=== PATIENT | female | born 1945 | race Caucasian/White ===

== ENCOUNTER → 2019-01-16 12:01 | Outpatient (CLI) | payer MEDICARE, OTHER, SELFPAY ==
--- NOTE | 2019-01-16 | DI.US.S_ITS ---
PROCEDURE: US ABD AORTA ANEURYSM SCREEN INDICATIONS: AAA SCREENING TECHNIQUE: Real time scanning was performed of the aorta and iliac arteries, with image documentation. COMPARISON: None. FINDINGS: Aorta: Proximal aortic diameter measures 2.5 cm. Mid-aorta measures 1.9 cm. Distal aortic diameter is 1.7 cm. Iliac arteries: Right common iliac artery measures 0.7 cm. Left common iliac artery measures 1.7 cm. IMPRESSION: No evidence of abdominal aortic aneurysm. Dictated by: Derrick Brooke M.D. on 01/16/2019 at 14:39 Approved by: Derrick Brooke M.D. on 01/16/2019 at 14:40
== END ==
PROVIDERS: Family Provider Family Medicine; PCP Family Medicine; Visit Provider Family Medicine
DX: Z13.820 Encounter for screening for osteoporosis (principal); Z13.6 Encounter for screening for cardiovascular disorders; M85.852 Other specified disorders of bone density and structure, left thigh; Z78.0 Asymptomatic menopausal state; E28.39 Other primary ovarian failure; Z85.3 Personal history of malignant neoplasm of breast; Z82.62 Family history of osteoporosis
CPT/HCPCS: 76706; 77080

== ENCOUNTER → 2020-01-19 13:42 | Outpatient (CLI) | payer MEDICARE, OTHER, SELFPAY ==
--- NOTE | 2020-01-19 | DI.CT.S_ITS ---
PROCEDURE: CT ABDOMEN PELVIS W CON INDICATIONS: Diverticulitis of intestine, part unspecified, wit TECHNIQUE: After the administration of oral and intravenous contrast, 5 mm thick sections acquired from the diaphragms to the symphysis. 5 mm thick coronal and sagittal reformats were performed. For radiation dose reduction, the following was used: automated exposure control, adjustment of mA and/or kV according to patient size. COMPARISON: None. FINDINGS: Image quality: Excellent. ABDOMEN: Lung bases: Lung bases are clear. Heart size is normal. Bilateral breast implants without evidence of implant rupture. Solid organs: Liver is normal in size and enhancement. Gallbladder appears normal. Biliary system is non-dilated. Pancreas enhances normally. Spleen is normal in size and enhancement. No adrenal nodules. Kidneys are normal in size and enhancement, without hydronephrosis. Peritoneum and bowel: Stomach, small bowel, and colon loops are normal in caliber and wall thickness. No free fluid or air. Nodes and vessels: No retroperitoneal or mesenteric adenopathy. Aorta and inferior vena cava are normal in caliber. Miscellaneous: No ventral hernias. PELVIS: Genitourinary: Bladder wall thickness is normal. Miscellaneous: No inguinal hernias or adenopathy. Note is made of mild diverticulosis involving the colon, and at the left lower quadrant in the pericolonic fat there is a mild degree of excess radiodensity consistent with focal edema from acute diverticulitis involving the lower aspect of the descending colon (series 4, image 31 coronal reformation imaging and axial source imaging series 2 image 34).. There is no peridiverticular abscess. Bones: No suspicious bony lesions. No vertebral body compression fractures. IMPRESSION: Mild acute diverticulitis without peridiverticular abscess involving the lower aspect of the descending colon at the left lower quadrant. Dictated by: Farhan Sanchez M.D. on 01/19/2020 at 17:03 Approved by: Farhan Sanchez M.D. on 01/19/2020 at 17:07
--- NOTE | 2020-01-19 | DI.RAD.S_ITS ---
PROCEDURE: XR HIP W PEL IF DONE BILAT 2V INDICATIONS: Other specified disorders of bone density and structure, uns TECHNIQUE: AP pelvis with lateral view(s) of the bilateral hip(s). COMPARISON: None. FINDINGS: Bones: No fractures or dislocations. Pelvic ring appears intact. No suspicious bony lesions. Soft tissues: The visualized bowel gas pattern is normal. No suspicious soft tissue calcifications. IMPRESSION: Mild bilateral symmetric hip joint osteoarthritis. No prior trauma seen. Dictated by: Farhan Sanchez M.D. on 01/19/2020 at 16:34 Approved by: Farhan Sanchez M.D. on 01/19/2020 at 16:34
--- NOTE | 2020-01-19 | DI.RAD.S_ITS ---
PROCEDURE: XR LUMBAR SPINE 2-3V INDICATIONS: Other specified disorders of bone density and structure, uns TECHNIQUE: 2 views of the lumbar spine were acquired. COMPARISON: [facility], CT, CT ABDOMEN PELVIS W CON, 01/19/2020, 14:51. FINDINGS: Bones: 5 [id number] vertebrae are present. There is normal bony alignment. There is a likely chronic T12 superior endplate impaction fracture, which can be seen on CT scanning also) performed same day) without adjacent edema. This is comprised of a 31% vertebral height reduction when compared to the level immediately above. vertebral body compression fractures. No suspicious bony lesions. Soft tissues: Overlying bowel gas pattern is normal. No suspicious soft tissue calcifications. IMPRESSION: No significant degenerative disc disease is found. T12 superior endplate impaction fracture likely is chronic, 32% height reduction at the middle third of the vertebral body, and MR scanning could accurately establish chronicity of this injury if clinically warranted. Dictated by: Farhan Sanchez M.D. on 01/19/2020 at 16:56 Approved by: Farhan Sanchez M.D. on 01/19/2020 at 16:59
[2020-01-19 14:21] LABS: Blood Urea Nitrogen 12 mg/dL (7-17); Calcium 8.8 mg/dL (8.4-10.2); Carbon Dioxide 31 mmol/L (22-32); Chloride 100 mmol/L (98-107); Estimated Glomerular Filt Rate > 60.0 mL/min (>60); Glucose 93 mg/dL (80-110); HEMOLYSIS < 15 (0-50); Potassium 3.8 mmol/L (3.4-5.1); Sodium 139 mmol/L (137-145)
== END ==
PROVIDERS: Family Provider Family Medicine; PCP Family Medicine; Referring Provider Family Medicine; Visit Provider Family Medicine
DX: K57.32 Diverticulitis of large intestine without perforation or abscess without bleeding (principal); M16.0 Bilateral primary osteoarthritis of hip; M25.552 Pain in left hip; M85.80 Other specified disorders of bone density and structure, unspecified site
CPT/HCPCS: 36415; 72100; 73521; 74177; 80048; Q9967

== ENCOUNTER → 2020-02-03 10:25 | Outpatient (CLI) | payer MEDICARE, OTHER, SELFPAY ==
--- NOTE | 2020-02-03 | DI.MRI.S_ITS ---
PROCEDURE: MR LUMBAR SPINE WO CON INDICATIONS: Radiculopathy, lumbar region TECHNIQUE: Noncontrast sagittal T1 spin echo and T2 fast echo, sagittal STIR, axial T1 and T2 fast spin echo through the lumbar spine. In cases with scoliosis, additional coronal T2 fast spin echo may be performed. COMPARISON: None. FINDINGS: Image quality: Excellent. Alignment and Curvature: Trace anterolisthesis of L4 on L5. Bone Marrow: Marrow is of normal overall signal. Chronic T12 compression fracture which demonstrates mild height loss Spinal Cord: Conus medullaris terminates at the L2 level. Visualized cord demonstrates normal signal and size. Paraspinous Soft Tissues: No paravertebral masses. L1-L2: Normal appearance. L2-L3: Normal appearance. L3-L4: No canal narrowing. Partial effacement of both lateral recesses with bilaterally symmetric appearance. Mild bilateral foraminal narrowing with slight nerve root compression. L4-L5: Mild canal narrowing. Partial effacement of both lateral recesses with bilaterally symmetric appearance. Bilateral [id number] foraminal narrowing with slight right-sided nerve root compression. L5-S1: Mild canal narrowing, left slightly greater than right. Partial effacement of both lateral recesses which is asymmetric, left greater than right. There is moderate left foraminal narrowing with slight nerve root compression. No right foraminal stenosis IMPRESSION: Lower lumbar spondylosis and facet arthropathy Chronic appearing compression fracture at T12 Trace anterolisthesis of L4 on L5 Bilateral foraminal stenoses as detailed above by spinal level. Dictated by: Meño Moreno M.D. on 02/03/2020 at 13:04 Approved by: Meño Moreno M.D. on 02/03/2020 at 13:24
== END ==
PROVIDERS: Family Provider Family Medicine; PCP Family Medicine; Referring Provider Family Medicine; Visit Provider Family Medicine
DX: M47.26 Other spondylosis with radiculopathy, lumbar region (principal); M48.061 Spinal stenosis, lumbar region without neurogenic claudication; M48.07 Spinal stenosis, lumbosacral region; S22.080S Wedge compression fracture of T11-T12 vertebra, sequela; M80.00XS Age-related osteoporosis with current pathological fracture, unspecified site, sequela
CPT/HCPCS: 72148